=== PATIENT | female | born 1970 | race Caucasian/White ===

== ENCOUNTER 2017-03-03 19:31 | Emergency (ER) | payer MEDICARE ==
[2017-03-03] MEDS ORDERED: ONDANSETRON HCL 4 MG/2 ML VIAL ONE (20:19)
[2017-03-03] MEDS ORDERED: cefTRIAXone SODIUM 1,000 MG/10 ML VIAL ONE (20:20)
[2017-03-03] MEDS ORDERED: KETOROLAC TROMETHAMINE 30 MG/ML VIAL ONE (20:20)
[2017-03-03 20:21] LABS: BASOPHILS 0.8 % (0.0-2.0); EOSINOPHILS 2.6 % (0.0-6.0); EOSINOPHILS# 0.2 X 10^3uL (0.0-0.4); HEMATOCRIT 46.3 % (36.0-48.0); HEMOGLOBIN 15.6 g/dL (12.0-16.0); LYMPHOCYTES 31.3 % (20.0-40.0); MEAN CELL VOLUME 85.3 fL (80.0-100.0); MEAN CORPUS. HGB CONCENTRATION 33.7 g/dL (32.0-36.0); MEAN CORPUSCULAR HEMOGLOBIN 28.8 pg (29.0-35.0); MEAN PLATELET VOLUME 8.3 fL (7.4-10.4); MONOCYTES 6.4 % (2.0-10.0); MONOCYTES# 0.4 X 10^3uL (0.2-1.0); NEUTROPHILS 58.9 % (54.0-75.0); NEUTROPHILS# 3.6 X 10^3uL (2.6-6.7); PLATELET COUNT 233 X 10^3uL (130-440); RED BLOOD COUNT 5.43 X 10^6uL (4.20-6.10); RED CELL DISTRIBUTION WIDTH 13.4 % (11.5-14.5); WHITE BLOOD COUNT 6.2 X 10^3uL (3.9-10.7)
[2017-03-03] MEDS ORDERED: NORMAL SALINE 100 ML IV ONE (20:27)
[2017-03-03] MEDS ORDERED: PHENAZOPYRIDINE 100 MG TABLET PO ONE ×2 (20:27→21:44)
[2017-03-03 20:30] LABS: URINE MUCUS NONE SEEN (Up to 25%); URINE RBC NONE SEEN (0-5/hpf); URINE WBC NONE SEEN (0-4/hpf)
[2017-03-03 20:34] LABS: BLOOD UREA NITROGEN 10 mg/dL (7-17); CALCIUM 9.6 mg/dL (8.4-10.2); CHLORIDE 110 mmol/L (98-107); EST GLOMERULAR FILTRATION RATE > 60 mL/min; GLUCOSE 108 mg/dL (70-100); POTASSIUM 3.6 mmol/L (3.5-5.1); SODIUM 138 mmol/L (137-145)
[2017-03-03 20:36] LABS: URINE APPEARANCE CLEAR; URINE COLOR YELLOW
[2017-03-03 20:42] LABS: URINE BILIRUBIN NEGATIVE (NEGATIVE); URINE BLOOD 50 Ery/uL (2+) (NEGATIVE); URINE GLUCOSE NORMAL (NEGATIVE); URINE KETONE NEGATIVE (NEGATIVE); URINE LEUKOCYTE ESTERASE NEGATIVE (NEGATIVE); URINE NITRITE NEGATIVE (NEGATIVE); URINE PH 5.5 (5-7); URINE PROTEIN NEGATIVE (NEG - TRACE); URINE SPECIFIC GRAVITY < or = 1.005 (0.001-1.035); URINE SQUAMOUS EPITHELIAL CELL 0-5/hpf (<= 15/hpf); URINE UROBILINOGEN 0.2mg/dL (Normal) (NEG-1mg/dL)
[2017-03-03 20:43] LABS: URINE BACTERIA <10 ORGANISMS/hpf (<10/hpf)
[2017-03-03] MEDS ORDERED: ONDANSETRON ODT PREPAC 4 MG TAB.RAPDIS PO ONE (21:45)
--- NOTE | 2017-03-03 21:54 | ER NURSING DOCUMENTATION ---
Nurse's Notes [facility] Name:Pratibha Healy Age:46 yrs Sex:Female :1970 Arrival Date:03/03/2017 Time:19:31 Bed3 Private MD: Diagnosis:Pelvic Pain;Cystitis-: Interstitial;Dehydration Presentation: 03/03 19:50 Presenting complaint: Patient states: Had hysterectomy 10 days ago. Has an indwelling 4 rucker. Has had numerous UTI's since then. C/ O burning, cold sweats, dizziness. Transition of care: Home. 19:50 Method Of Arrival: Walk In [facility] 19:50 Acuity: LEROY 3 4 Triage Assessment: 19:56 General: Appears distressed, Behavior is cooperative. Pain: Complains of pain in groin 4 Pain does not radiate. Pain currently is 9 out of 10 on a pain scale. Quality of pain is described as burning. EENT: No deficits noted. Neuro: Level of Consciousness is awake, Oriented to person, place, time. Cardiovascular: Rhythm is sinus tachycardia. Respiratory: Trachea midline Respiratory effort is even, unlabored, Respiratory pattern is regular, symmetrical. GI: No deficits noted. : Rucker in place to gravity drainage Urine is clear, Burning x 8 days. Derm: No deficits noted. Musculoskeletal: No deficits noted. Historical: - Allergies: No known drug Allergies; - Home Meds: 1. Lovenox Sub-Q once daily 2. hydrocodone-acetaminophen 5-500 mg oral cap 2 caps every 4 hours for Pain - PMHx: hystereectomy 02/2017; - Tetanus: < 10 years. - Ebola Screening: : No symptoms or risks identified at this time. . - Immunization history: Flu Vaccine < 1 year. - Social history: Smoking status: Patient states was never smoker of tobacco. Screenin:05 Infectious Disease Risk None. Abuse screen: Denies threats or abuse. Nutritional [facility] screening: No deficits noted. Assessment: 20:05 See Triage Assessment done by same RN. [facility] Vital Signs: 19:58 BP 130 / 83; Pulse 123; Resp 16; Temp 98.8; Pulse Ox 92% on R/A; Weight 74.84 kg; 4 Height 5 ft. 7 in. (170.18 cm); Pain 8/10; 21:00 BP 131 / 80; Pulse 89; Resp 14; Pulse Ox 90% on R/A; mk4 21:51 BP 131 / 74; Pulse 82; Resp 14; Temp 98.3; Pulse Ox 94% ; Pain 2/10; mk4 19:58 Body Mass Index 25.84 (74.84 kg, 170.18 cm) mk4 [place] Coma Score: 20:20 Eye Response: spontaneous(4). Verbal Response: oriented(5). Motor Response: obeys cd commands(6). Total: 15. ED Course: 19:32 Patient arrived in ED. em3 19:35 Allergy Band Placed Arm band placed on Bed in low position Call Light in Reach Side mk4 rails up x2. Family accompanied patient. Labs ordered per protocol. Urine obtained. 19:40 Valuables Remains with patient. Cardiac Monitoring On for Nurse Monitoring only. Pulse mk4 Ox - RN Monitoring Only NIBP On - RN Monitoring Only. Door closed. Noise minimized. Verbal reassurance given. Warm blanket given. Pillow given. 19:42 Bubba Euceda MD is Attending Physician. cd 19:50 Azeb Collier is Primary Nurse. mk4 19:55 Triage completed. mk4 20:10 First set of blood cultures drawn Second set of blood cultures drawn by me. Inserted sj peripheral IV: 20 gauge in left hand and blood collected. Administered Medications: Completed: NS 0.9% 1000 ml IV at 250 ml/hr continuous Completed: NS 0.9% 1000 ml IV at bolus once 20:14 Drug: NS 0.9% 1000 ml; Volume: 1000 ml; Route: IV; Rate: 250 ml/hr; Infused Over: 45 mk4 mins; Site: left hand; Delivery: [place] [facility]; 21:51 Follow up: IV Status: Completed infusion; Infusion discontinued; IV Intake: 1000ml mk4 20:15 Drug: Toradol 30 mg; Route: IVP; Rate: 30 bolus; Infused Over: 2 mins; Site: left hand; mk4 21:19 Follow up: Response: No adverse reaction; Pain is decreased mk4 20:16 Drug: Zofran 4 mg; Route: IVP; Rate: 4 bolus; Infused Over: 2 mins; Site: left hand; mk4 21:20 Follow up: Response: No adverse reaction; Nausea is decreased mk4 20:16 Drug: Pyridium 200 mg; Route: PO; mk4 21:20 Follow up: Response: No adverse reaction; Pain is decreased mk4 20:17 Drug: NS 0.9% 1000 ml; Volume: 1000 ml; Route: IV; Rate: bolus; Infused Over: 45 mins; mk4 Site: left hand; Delivery: [place] [facility]; 21:50 Follow up: IV Status: Completed infusion; Infusion discontinued; IV Intake: 1000ml mk4 20:17 Drug: Rocephin 1 grams; Volume: 100 ml; Route: IVPB; Rate: 200 ml/hr; Infused Over: 30 mk4 mins; Site: left hand; Delivery: Pump; 21:21 Follow up: IV Status: Completed infusion; Infusion discontinued; IV Intake: 1000ml mk4 21:42 Drug: Pyridium - Phenazopyridine 200mg 1 tablet; Route: PO; mk4 21:48 Follow up: Response: Pharmacy closed - take home med pack mk4 21:42 Drug: Zofran 1 tablet; Route: PO; mk4 21:49 Follow up: Response: Pharmacy closed - take home med pack mk4 Intake: 21:21 IV: 1000ml; Total: 1000ml. mk4 21:50 IV: 1000ml; Total: 2000ml. mk4 21:51 IV: 1000ml; Total: 3000ml. 4 Outcome: 21:15 Discharge ordered by . [email or web address] 21:51 Discharged to home ambulatory, with family. mk4 21:51 Condition: good 21:51 Discharge Assessment: Patient awake, alert and oriented x 3. No cognitive and/or functional deficits noted. Patient verbalized understanding of disposition instructions. 21:51 Discharge instructions given to patient, Instructed on discharge instructions, follow up and referral plans. medication usage, Demonstrated understanding of instructions, Prescriptions given X 2. 21:53 Patient left the ED. 4 03/04 11:18 Discharge F/U Call: Spoke with: patient. Have you filled your prescriptions? yes. rh Have you made a f/u appointment? yes Signatures: Bubba Euceda MD MD cd Meiklejohn, Eric em3 King, Melody 4 Day Lerner Sarah sj
--- NOTE | 2017-03-03 21:54 | ER PHYSICIAN DOCUMENTATION ---
Physician Documentation [facility] Name:Pratibha Healy Age:46 yrs Sex:Female :1970 Arrival Date:03/03/2017 Time:19:31 Bed3 Private MD: Bubba Cooley Disposition: 03/03/17 21:15 Discharged to Home/Self Care. Impression: Pelvic Pain, Cystitis - : Interstitial, Dehydration. - Condition is Good. - Discharge Instructions: DEHYDRATION (6y-Adult), PELVIC PAIN, Unknown Cause. - Prescriptions for Pyridium 200 mg Oral tablet - take 1 tablet by ORAL route 3 times per day for 2 days; 20 tablet. Zofran 4 mg Oral - take 1 tablet by ORAL route every 6 hours .; 20 tablet. - Medical Reconciliation form form. - Follow up: Private Physician; When: Tomorrow; Reason: Recheck today's complaints, Continuance of care. - Problem is an ongoing problem. - Symptoms have improved. - Notes: Continue your Bactrim DS until gone. Drink 2 - 3 quarts of water every day. Take Ibuprofen 600mg by mouth every 6 hours with food if needed for pain Take Pyridium 200mg by mouth every 8 hours for burning... Take Zofran 4mg under your tongue every 6 hours as needed for nausea. Follow up with your [facility]PHROLOG[facility] Doctor in [place] tomorrow for further evaluation and Winters Catheter removal. Take Labwork printout to your physician tomorrow as well as your Urine Culture and Sensitivity results from the [facility]. HPI: 03/03 20:02 This 46 yrs old Female presents to ER via Walk In with complaints of Hx of cd Post-op UTI with continued pain. 20:02 The patient presents with pelvic pain, that is located in/on the pelvis, the pain does cd not radiate, the pain is described as severe, dull, urinary symptoms, dysuria. Onset: The symptoms/episode began/occurred acutely, last week. Associated signs and symptoms: Pertinent positives: nausea, Patient complains of pain and burning. The patient underwent Laparosopic Hysterectomy 10 days ago in [place], [place] for Cervical Cancer. She reports that they "nicked the bladder" during the operation and therefore had to place a Winters Catheter. 4 days ago she developed a UTI and was placed on Macrodantin. Her Urine C & S returned to the [facility] and therefore was switched to Bactrim DS 3 days ago. The pain in her Pelvis has continued in spite of Pyridium and Oxycodone. She reports taking two Oxycodone tabs by mouth about one hour ago, which has not touched her pain. She complains of chills, but no high fever. She denies rigors or shaking chills. She denies back pain or CVAT. She reports getting diaphoretic and lightheaded 2-3 times today. Pain in the pelvis has been increasing. . Ectopic Risk: No risk factors noted. Severity of symptoms: At their worst the symptoms were moderate, in the emergency department the symptoms are unchanged. Historical: - Allergies: No known drug Allergies; - Home Meds: 1. Lovenox Sub-Q once daily 2. hydrocodone-acetaminophen 5-500 mg oral cap 2 caps every 4 hours for Pain - PMHx: hystereectomy 02/2017; - Tetanus: < 10 years. - Ebola Screening: : No symptoms or risks identified at this time. . - Immunization history: Flu Vaccine < 1 year. - Social history: Smoking status: Patient states was never smoker of tobacco. ROS: 20:18 Positive for urinary symptoms, pelvic pain, Negative for flank pain, difficulty cd urinating, foul smelling urine. 20:18 ENT: Negative for injury, pain, epistaxis and discharge. cd Cardiovascular: Negative for chest pain, palpitations, edema and pleuritic pain. Respiratory: Negative for shortness of breath, dyspnea on exertion, cough, sputum production, wheezing, hemoptysis and pleuritic chest pain. Back: Negative for injury, pain or muscle spasms. Skin: Negative for injury, rash, itching and discoloration. 20:18 Neuro: Negative for headache, weakness, numbness, tingling, and seizure. 20:18 Constitutional: Positive for body aches, chills, Negative for fever, poor PO intake. 20:18 Abdomen/GI: Positive for abdominal pain, nausea, constipation, anorexia, of the suprapubic area, Negative for vomiting, diarrhea, hematemesis, black/tarry stool, rectal bleeding. 20:18 MS/extremity: Positive for muscle aches in legs. 20:18 All other systems are negative. Exam: ENT: Nares patent. No nasal discharge, no septal abnormalities noted. Tympanic membranes are normal and external auditory canals are clear. Oropharynx with no redness, swelling, or masses, exudates, or evidence of obstruction, uvula midline. Mucous membranes dry Cardiovascular: Regular rate and rhythm with a normal S1 and S2. No gallops, murmurs, or rubs. Normal PMI, no JVD. No pulse deficits. Respiratory: Lungs have equal breath sounds bilaterally, clear to auscultation and percussion. No rales, rhonchi or wheezes noted. No increased work of breathing, no retractions or nasal flaring. 20:20 Back: No spinal tenderness. No costovertebral tenderness. Full range of motion. cd Skin: Warm, dry with normal turgor. Normal color with no rashes, no lesions, and no evidence of cellulitis. MS/ Extremity: Pulses equal, no cyanosis. Neurovascular intact. Full, normal range of motion. 20:20 Neuro: Awake and alert, GCS 15, oriented to person, place, time, and situation. Cranial nerves II-XII grossly intact. Motor strength 5/5 in all extremities. Sensory grossly intact. Cerebellar exam normal. Normal gait. 20:20 Constitutional: The patient appears alert, awake, non-diaphoretic, non-toxic, well developed, well nourished, anxious, obese, in obvious distress, mildly distressed. 20:20 Abdomen/GI: Inspection: abdomen appears normal, scar(s), are noted in the umbilical area, right lower quadrant and left lower quadrant, healing well, Bowel sounds: active, Palpation: abdomen is soft and non-tender, rebound tenderness, is not appreciated, voluntary guarding, is not appreciated, involuntary guarding, is not appreciated, no appreciated organomegaly, Rectal exam: the exam is deferred. 20:20 : CVA tenderness, is absent, Bladder: distension, is not appreciated, tenderness, that is mild. Vital Signs: 19:58 BP 130 / 83; Pulse 123; Resp 16; Temp 98.8; Pulse Ox 92% on R/A; Weight 74.84 kg; mk4 Height 5 ft. 7 in. (170.18 cm); Pain 8/10; 21:00 BP 131 / 80; Pulse 89; Resp 14; Pulse Ox 90% on R/A; mk4 21:51 BP 131 / 74; Pulse 82; Resp 14; Temp 98.3; Pulse Ox 94% ; Pain 2/10; mk4 19:58 Body Mass Index 25.84 (74.84 kg, 170.18 cm) mk4 [place] Coma Score: 20:20 Eye Response: spontaneous(4). Verbal Response: oriented(5). Motor Response: obeys cd commands(6). Total: 15. MDM: 19:42 Patient medically screened. 19:42 Data interpreted: Pulse oximetry: on room air is 94 %. Interpretation: normal. cd 19:45 Differential diagnosis: nonspecific abdominal pain, urinary tract infection, cd Interstitial Cystitis, Dehydration, Bladder leak, Urosepsis. Data reviewed: vital signs, nurses notes, old medical records, and as a result, I will continue to observe the patient, administer antibiotics Rocephin, Zofran, administer IV fluids, NS bolus, NS maintenence, prescribe pain medication, Toradol. 21:00 Counseling: I had a detailed discussion with the patient and/or guardian regarding: the cd historical points, exam findings, and any diagnostic results supporting the discharge/admit diagnosis, lab results, the need for outpatient follow up, for a recheck, of today's symptoms, for a referral to a specialist, an OB/Gyne specialist, to return to the emergency department if symptoms worsen or persist or if there are any questions or concerns that arise at home. Response to treatment: the patient's symptoms have markedly improved after treatment, the patient's condition has returned to base line, patient is well hydrated. and as a result, I will discharge patient. 03/03 20:36 Order name: LACTATE; Complete Time: 20:47 EDMS 03/03 20:45 Interpretation: Normal. 03/03 20:36 Order name: BASIC METABOLIC PANEL; Complete Time: 20:47 EDMS 03/03 20:46 Interpretation: Normal Except: CARBON DIOXIDE 17; Dehydration, Metabolic Acidosis. 03/03 20:37 Order name: CBC AUTO DIF, MDIF/RMOR IF IND; Complete Time: 20:47 EDMS 03/03 20:46 Interpretation: Normal. 03/03 20:44 Order name: UA W/ MICRO -CULTURE IF IND; Complete Time: 20:47 EDMS 03/03 20:46 Interpretation: URINE BLOOD 50 [place]/uL (2+); Hematuria, has a Winters Catheter in place. 03/04 07:40 Order name: URINE CULTURE EDFL 03/04 20:35 Order name: BLOOD CULTURE [facility] 03/04 20:35 Order name: BLOOD CULTURE EDMS Dispensed Medications: Completed: NS 0.9% 1000 ml IV at 250 ml/hr continuous Completed: NS 0.9% 1000 ml IV at bolus once 20:14 Drug: NS 0.9% 1000 ml; Volume: 1000 ml; Route: IV; Rate: 250 ml/hr; Infused Over: 45 mk4 mins; Site: left hand; Delivery: [place] [facility]; 21:51 Follow up: IV Status: Completed infusion; Infusion discontinued; IV Intake: 1000ml mk4 20:15 Drug: Toradol 30 mg; Route: IVP; Rate: 30 bolus; Infused Over: 2 mins; Site: left hand; mk4 21:19 Follow up: Response: No adverse reaction; Pain is decreased mk4 20:16 Drug: Zofran 4 mg; Route: IVP; Rate: 4 bolus; Infused Over: 2 mins; Site: left hand; mk4 21:20 Follow up: Response: No adverse reaction; Nausea is decreased mk4 20:16 Drug: Pyridium 200 mg; Route: PO; mk4 21:20 Follow up: Response: No adverse reaction; Pain is decreased mk4 20:17 Drug: NS 0.9% 1000 ml; Volume: 1000 ml; Route: IV; Rate: bolus; Infused Over: 45 mins; mk4 Site: left hand; Delivery: [place] [facility]; 21:50 Follow up: IV Status: Completed infusion; Infusion discontinued; IV Intake: 1000ml mk4 20:17 Drug: Rocephin 1 grams; Volume: 100 ml; Route: IVPB; Rate: 200 ml/hr; Infused Over: 30 mk4 mins; Site: left hand; Delivery: Pump; 21:21 Follow up: IV Status: Completed infusion; Infusion discontinued; IV Intake: 1000ml mk4 21:42 Drug: Pyridium - Phenazopyridine 200mg 1 tablet; Route: PO; mk4 21:48 Follow up: Response: Pharmacy closed - take home med pack mk4 21:42 Drug: Zofran 1 tablet; Route: PO; mk4 21:49 Follow up: Response: Pharmacy closed - take home med pack mk4 Signatures: Bubba Euceda MD MD cd King, Azeb mk4
== END 2017-03-03 21:54 | disposition home or self-care (01) ==
LOC: ER 19:31
DX: R10.2 Pelvic and perineal pain (principal); T83.518A Infection and inflammatory reaction due to other urinary catheter, initial encounter; B96.89 Other specified bacterial agents as the cause of diseases classified elsewhere; N30.90 Cystitis, unspecified without hematuria; E86.0 Dehydration; R11.0 Nausea; M79.1 Myalgia; R68.83 Chills (without fever); K59.00 Constipation, unspecified; M79.89 Other specified soft tissue disorders; Z98.890 Other specified postprocedural states; C53.9 Malignant neoplasm of cervix uteri, unspecified
CPT/HCPCS: 80048; 81001; 83605; 85025; 87040; 87077; 87086; 87186; 96361; 96365; 96375; 99284; J0696; J1885; J2405